=== PATIENT | female | born 1970 | race Caucasian/White ===

== ENCOUNTER 2016-10-15 04:22 | Observation (INO) | payer BC ==
[~2016-10-15] VITALS: Ht 162.6 cm; Wt 68.0 kg
[2016-10-15] VITALS (11 sets, daily range): BP systolic 91–117; BP diastolic 50–68; PULSE 55–72; RESP 16–20; TEMP 97.7–98.7; O2SAT 95–100
[~2016-10-15 04:22] MED LIST: CYCL-36 PO; NAPR500 PO
[2016-10-15] MEDS ORDERED: SODIUM CHLOR 0.9% 1000 ML INJ 1,000 ML IV SCH (04:49)
--- NOTE | 2016-10-15 04:58 | PD ---
HPI Chief Complaint: Abdominal Pain Time Seen by Provider: 04:35 Travel History International Travel<30 days: No Contact w/Intl Traveler<30days: No Traveled to known affect area: No History of Present Illness HPI The patient is a 46-year-old female who presents to the emergency department for abdominal pain. The patient notes a 2 week history of intermittent right upper quadrant abdominal pain that radiates to the right shoulder. The patient states the pain is worse after eating occasionally, was exacerbated by eating fried chicken, and was exacerbated by eating garlic bread earlier tonight. She denies any nausea, vomiting, or diarrhea. The patient does have a family history of gallbladder-related problems, however, denies any personal history of gallstones or biliary colic. The patient denies any associated fever, chills, or sweats. The patient's pain is moderate, radiates to the right shoulder, exacerbated after eating, and minimally self alleviating. The patient's primary physician is Dr. Ortiz. REPLACED BY [facility] Past Medical History Diminished Hearing: No Musculoskeletal: Yes (PREVIOUS HISTORY OF STIFF NECK) Migraines: Yes Tetanus Vaccination: Unknown Influenza Vaccination: No ?: Not LMP: NOW Tubal Ligation: Yes Past Surgical History Narrative Surgical Tubal ligation Social History Alcohol Use: No Tobacco Use: Yes (05/19 PPD) Substance Use: No Allergies-Medications (Allergen,Severity, Reaction): Coded Allergies: Dilaudid (Verified Allergy, Intermediate, Nausea/Vomiting,SWEATING, ) Reported Meds & Prescriptions Reported Meds & Active Scripts Active No Active Prescriptions or Reported Medications Review of Systems Except as stated in HPI: all other systems reviewed are Neg General / Constitutional: No: Fever Cardiovascular: No: Chest Pain or Discomfort Respiratory: No: Shortness of Breath Gastrointestinal: Positive: Abdominal Pain, No: Nausea, Vomiting Genitourinary: No: Dysuria Musculoskeletal: No: Weakness Skin: No Rash Physical Exam Narrative GENERAL: Awake, alert, very pleasant 46-year-old female who appears her stated age and is in no acute respiratory distress. SKIN: Focused skin assessment warm/dry. HEAD: Atraumatic. Normocephalic. EYES: Pupils equal and round. No scleral icterus. No injection or drainage. ENT: No nasal bleeding or discharge. Mucous membranes pink and moist. NECK: Trachea midline. No JVD. CARDIOVASCULAR: Regular rate and rhythm. No murmur appreciated. RESPIRATORY: No accessory muscle use. Clear to auscultation. Breath sounds equal bilaterally. GASTROINTESTINAL: Abdomen soft, tender to palpation right upper quadrant. Positive Adam's. Mild guarding. MUSCULOSKELETAL: No obvious deformities. No clubbing. No cyanosis. No edema. NEUROLOGICAL: Awake and alert. No obvious cranial nerve deficits. Motor grossly within normal limits. Normal speech. PSYCHIATRIC: Appropriate mood and affect; insight and judgment normal. Data Data Last Documented VS Vital Signs Date Time Temp Pulse Resp B/P Pulse Ox O2 Delivery O2 Flow Rate FiO2 10/15/16 06:14 72 18 117/60 98 Room Air 10/15/16 04:25 97.7 Orders Complete Blood Count With Diff (10/15/16 04:49) Comprehensive Metabolic Panel (10/15/16 04:49) Lipase (10/15/16 04:49) Urinalysis - C+S If Indicated (10/15/16 04:49) Ct Abd/Pel W Iv Contrast(Rout) (10/15/16 04:49) Iv Access Insert/Monitor (10/15/16 04:49) Ecg Monitoring (10/15/16 04:49) Oximetry (10/15/16 04:49) Morphine Inj (Morphine Inj) (10/15/16 05:00) Ondansetron Inj (Zofran Inj) (10/15/16 05:00) Sodium Chlor 0.9% 1000 Ml Inj (Ns 1000 M (10/15/16 04:49) Sodium Chloride 0.9% Flush (Ns Flush) (10/15/16 05:00) Ketorolac Inj (Toradol Inj) (10/15/16 05:00) Ed Urine Pregnancytest Poc (10/15/16 04:49) Iohexol 350 Inj (Omnipaque 350 Inj) (10/15/16 05:56) Ampicillin-Sulbactam Inj (Unasyn Inj) (10/15/16 06:15) Ns + Kcl 20 Meq Inj (Ns + Kcl 20 Meq Inj (10/15/16 06:15) Morphine Inj (Morphine Inj) (10/15/16 06:30) Sodium Chlorid 0.9% 500 Ml Inj (Ns 500 M (10/15/16 06:30) Admit Order (Ed Use Only) (10/15/16 06:22) Labs Laboratory Tests Test 10/15/16 10/15/16 04:57 05:04 White Blood Count 10.1 TH/MM3 Red Blood Count 4.41 MIL/MM3 Hemoglobin 12.8 GM/DL Hematocrit 38.6 % Mean Corpuscular Volume 87.4 FL Mean Corpuscular Hemoglobin 29.1 PG Mean Corpuscular Hemoglobin 33.3 % Concent Red Cell Distribution Width 14.1 % Platelet Count 392 TH/MM3 Mean Platelet Volume 7.4 FL Neutrophils (%) (Auto) 56.3 % Lymphocytes (%) (Auto) 32.0 % Monocytes (%) (Auto) 7.6 % Eosinophils (%) (Auto) 3.5 % Basophils (%) (Auto) 0.6 % Neutrophils # (Auto) 5.7 TH/MM3 Lymphocytes # (Auto) 3.2 TH/MM3 Monocytes # (Auto) 0.8 TH/MM3 Eosinophils # (Auto) 0.4 TH/MM3 Basophils # (Auto) 0.1 TH/MM3 CBC Comment DIFF FINAL Differential Comment Sodium Level 141 MEQ/L Potassium Level 3.9 MEQ/L Chloride Level 105 MEQ/L Carbon Dioxide Level 28.1 MEQ/L Anion Gap 8 MEQ/L Blood Urea Nitrogen 14 MG/DL Creatinine 0.88 MG/DL Estimat Glomerular Filtration 69 ML/MIN Rate Random Glucose 92 MG/DL Calcium Level 8.9 MG/DL Total Bilirubin LESS THAN 0.1 MG/DL Aspartate Amino Transf 17 U/L (AST/SGOT) Alanine Aminotransferase 30 U/L (ALT/SGPT) Alkaline Phosphatase 112 U/L Total Protein 7.2 GM/DL Albumin 3.6 GM/DL Lipase 301 U/L Urine Color YELLOW Urine Turbidity CLEAR Urine pH 6.0 Urine Specific [place] 1.022 Urine Protein TRACE mg/dL Urine Glucose (UA) NEG mg/dL Urine Ketones NEG mg/dL Urine Occult Blood LARGE Urine Nitrite NEG Urine Bilirubin NEG Urine Urobilinogen 2.0 MG/DL Urine Leukocyte Esterase NEG Urine RBC 2 /hpf Urine WBC 1 /hpf Urine Squamous Epithelial 1 /hpf Cells Urine Bacteria RARE /hpf Urine Mucus FEW /lpf Microscopic Urinalysis Comment CULT NOT INDICATED MDM Medical Decision Making Medical Screen Exam Complete: Yes Emergency Medical Condition: Yes Medical Record Reviewed: Yes Interpretation(s) Laboratory Tests Test 10/15/16 10/15/16 04:57 05:04 White Blood Count 10.1 TH/MM3 Red Blood Count 4.41 MIL/MM3 Hemoglobin 12.8 GM/DL Hematocrit 38.6 % Mean Corpuscular Volume 87.4 FL Mean Corpuscular Hemoglobin 29.1 PG Mean Corpuscular Hemoglobin 33.3 % Concent Red Cell Distribution Width 14.1 % Platelet Count 392 TH/MM3 Mean Platelet Volume 7.4 FL Neutrophils (%) (Auto) 56.3 % Lymphocytes (%) (Auto) 32.0 % Monocytes (%) (Auto) 7.6 % Eosinophils (%) (Auto) 3.5 % Basophils (%) (Auto) 0.6 % Neutrophils # (Auto) 5.7 TH/MM3 Lymphocytes # (Auto) 3.2 TH/MM3 Monocytes # (Auto) 0.8 TH/MM3 Eosinophils # (Auto) 0.4 TH/MM3 Basophils # (Auto) 0.1 TH/MM3 CBC Comment DIFF FINAL Differential Comment Sodium Level 141 MEQ/L Potassium Level 3.9 MEQ/L Chloride Level 105 MEQ/L Carbon Dioxide Level 28.1 MEQ/L Anion Gap 8 MEQ/L Blood Urea Nitrogen 14 MG/DL Creatinine 0.88 MG/DL Estimat Glomerular Filtration 69 ML/MIN Rate Random Glucose 92 MG/DL Calcium Level 8.9 MG/DL Total Bilirubin LESS THAN 0.1 MG/DL Aspartate Amino Transf 17 U/L (AST/SGOT) Alanine Aminotransferase 30 U/L (ALT/SGPT) Alkaline Phosphatase 112 U/L Total Protein 7.2 GM/DL Albumin 3.6 GM/DL Lipase 301 U/L Urine Color YELLOW Urine Turbidity CLEAR Urine pH 6.0 Urine Specific [place] 1.022 Urine Protein TRACE mg/dL Urine Glucose (UA) NEG mg/dL Urine Ketones NEG mg/dL Urine Occult Blood LARGE Urine Nitrite NEG Urine Bilirubin NEG Urine Urobilinogen 2.0 MG/DL Urine Leukocyte Esterase NEG Urine RBC 2 /hpf Urine WBC 1 /hpf Urine Squamous Epithelial 1 /hpf Cells Urine Bacteria RARE /hpf Urine Mucus FEW /lpf Microscopic Urinalysis Comment CULT NOT INDICATED CT of the abdomen and pelvis reveals an appearance consistent with cholecystitis. The gallbladder is abnormal in appearance, mildly distended with diffuse wall thickening, a stone is present in the fundus. Differential Diagnosis Differential diagnosis includes cholecystitis, biliary colic, symptomatically lithiasis, choledocholithiasis, pancreatitis, gastritis, peptic ulcer disease. Narrative Course IV was established, labs are drawn and sent, and the patient was placed on cardiac telemetry monitoring and continuous pulse oximetry monitoring. Patient was administered morphine, Zofran, Toradol, and IV fluids. Bedside UA test was obtained, was negative, CT of the abdomen and pelvis with IV contrast was ordered to evaluate for acute cholecystitis. White count is normal. LFTs and lipase are unremarkable. CT of the abdomen and pelvis reveals an appearance consistent with acute cholecystitis. The patient was administered Unasyn 3 g intravenously, Nothing by mouth, placed on maintenance fluids. A call was placed to the general surgeon on-call, Dr. Presley, at 6:08 AM. Physician Communication Physician Communication A call was placed the on-call general surgeon, Dr. Presley, at 6:08 AM. I discussed the patient with Dr. Presley at 6:20 AM who agrees with 23 hour observation. Diagnosis Primary Impression: Cholecystitis Admitting Information Admitting Physician Requests: Observation Scripts No Active Prescriptions or Reported Meds Condition: Stable Nicolas Null MD October 15, 2016 04:58
[2016-10-15] MEDS ORDERED: SODIUM CHLORIDE 0.9% FLUSH 10 ML FLUSH IV FLUSH PRN (05:00)
[2016-10-15] MEDS ORDERED: KETOROLAC TROMETHAMINE 30 MG/ML (IVP) VIAL IVP ONE (05:00)
[2016-10-15] MEDS ORDERED: ONDANSETRON HCL 4 MG/2 ML VIAL IVP ONE (05:00)
[2016-10-15] MEDS ORDERED: MORPHINE SULFATE 4 MG/ML INJ IV PUSH ONE ×2 (05:00→06:30)
[2016-10-15 05:05] LABS: AUTOMATED NEUTROPHIL # 5.7 TH/MM3 (1.8-7.7); BASOPHIL # 0.1 TH/MM3 (0-0.2); BASOPHIL % 0.6 % (0.0-2.0); EOSINOPHIL # 0.4 TH/MM3 (0-0.4); EOSINOPHIL % 3.5 % (0.0-4.0); HEMATOCRIT 38.6 % (35.0-46.0); HEMO FLAGS DIFF FINAL; LYMPHOCYTE # 3.2 TH/MM3 (1.0-4.8); MEAN CELL VOLUME 87.4 FL (80.0-100.0); MEAN CORPUSCULAR HEMOGLOBIN 29.1 PG (27.0-34.0); MEAN CORPUSCULAR HGB CONC 33.3 % (32.0-36.0); MONO % 7.6 % (0.0-8.0); NEUT % 56.3 % (16.0-70.0); PLATELET COUNT 392 TH/MM3 (150-450); RED BLOOD COUNT 4.41 MIL/MM3 (4.00-5.30); RED CELL DISTRIBUTION WIDTH 14.1 % (11.6-17.2); WHITE BLOOD COUNT 10.1 TH/MM3 (4.0-11.0)
[2016-10-15 05:26] LABS: ALT (GPT) 30 U/L (10-53); ANION GAP 8 MEQ/L (5-15); AST (GOT) 17 U/L (15-37); BICARBONATE 28.1 MEQ/L (21.0-32.0); BLOOD UREA NITROGEN 14 MG/DL (7-18); CHLORIDE 105 MEQ/L (98-107); GLOMERULAR FILTRATION RATE 69 ML/MIN (>89); POTASSIUM 3.9 MEQ/L (3.5-5.1); SODIUM (NA) 141 MEQ/L (136-145)
[2016-10-15 05:28] LABS: ALKALINE PHOSPHATASE 112 U/L (45-117); TOTAL BILIRUBIN ADULT LESS THAN 0.1 MG/DL (0.2-1.0)
[2016-10-15 05:29] LABS: BACTERIA, URINE RARE /hpf; BLOOD, URINE LARGE (NEG); COMMENT (UR) CULT NOT INDICATED; CULTURE IF INDICATED CULT NOT INDICATED; GLUCOSE,URINE NEG (NEG); KETONE, URINE NEG (NEG); MUCUS URINE FEW /lpf (OCC); NITRITE,URINE NEG (NEG); SQUAMOUS EPITHELIAL CELL URINE 1 /hpf (0-5); URINE COLOR YELLOW (YELLW/STRAW)
[2016-10-15] MEDS ORDERED: IOHEXOL 350 MG/ML 10 ML VIAL (for RAD DIAG) IV ONE (05:56)
[2016-10-15] MEDS ORDERED: AMPICILLIN-SULBACTAM INJ 3 GM in SODIUM CHLORIDE 0.9% INJ 100 ML IV ONE (06:15)
[2016-10-15] MEDS: NS + KCL 20 MEQ INJ 1,000 ML IV SCH ×3 (06:15→21:15)
[2016-10-15] MEDS ORDERED: SODIUM CHLORID 0.9% 500 ML INJ 500 ML IV ONE (06:30)
[2016-10-15] MEDS ORDERED: MORPHINE SULFATE 4 MG/ML INJ IV PUSH PRN (06:30)
[2016-10-15] MEDS ORDERED: ACETAMINOPHEN 650 MG SUPP RECTAL PRN (06:30)
[2016-10-15] MEDS ORDERED: ONDANSETRON HCL 4 MG/2 ML VIAL IV PRN (06:30)
[2016-10-15] MEDS ORDERED: SODIUM CHLORIDE 0.9% FLUSH 10 ML FLUSH IVF PRN (06:30)
[2016-10-15] MEDS: AMPICILLIN-SULBACTAM INJ 1,500 MG in SODIUM CHLORIDE 0.9% INJ 100 ML IV SCH ×3 (07:00→17:57)
[2016-10-15 07:05] LABS: APTT (PATIENT) 27.2 SEC (24.3-30.1); INTERNATIONAL NORMALIZED RATIO 0.9 RATIO; PROTHROMBIN TIME - PATIENT 9.4 SEC (9.8-11.6)
[2016-10-15] MEDS: SODIUM CHLORIDE 0.9% FLUSH 10 ML FLUSH IV FLUSH SCH ×2 (08:09→20:45)
--- NOTE | 2016-10-15 08:27 | RADRPT ---
EXAM DATE/TIME: 10/15/2016 05:51 [place] COMPARISON: No previous studies available for comparison. INDICATIONS : Right upper qaudrant pain. IV CONTRAST: 95 cc Omnipaque 350 (iohexol) IV ORAL CONTRAST: No oral contrast ingested. RADIATION DOSE: 6.64 CTDIvol (mGy) MEDICAL HISTORY : None SURGICAL HISTORY : Tubal ligation. ENCOUNTER: Initial ACUITY: 1 day PAIN SCALE: 8/10 LOCATION: Right upper quadrant TECHNIQUE: Volumetric scanning of the abdomen and pelvis was performed. Using automated exposure control and ad justment of the mA and/or kV according to patient size, radiation dose was kept as low as reasonably achievable to obtain optimal diagnostic quality images. FINDINGS: LOWER LUNGS: The visualized lower lungs are clear. LIVER: Homogeneous density without lesion. There is no dilation of the biliary tree. The gallbladder is abn ormal in appearance, mildly distended with diffuse wall thickening. A stone is present in the fundus. . SPLEEN: Small low-density lesion in the lateral aspect of the spleen may be cyst or hemangioma. PANCREAS: Within normal limits. KIDNEYS: Normal in size and shape. There is no mass, stone or hydronephrosis. ADRENAL GLANDS: Within normal limits. VASCULAR: There is no aortic aneurysm. BOWEL/MESENTERY: The stomach, small bowel, and colon demonstrate no acute abnormality. There is no free intraperitone al air or fluid. ABDOMINAL WALL: Within normal limits. RETROPERITONEUM: There is no lymphadenopathy. BLADDER: No wall thickening or mass. REPRODUCTIVE: Within normal limits. INGUINAL: There is no lymphadenopathy or hernia. MUSCULOSKELETAL: Within normal limits for patient age. CONCLUSION: CT appearance consistent with cholecystitis. Zafar Castellon MD on October 15, 2016 at 5:59 Board Certified Radiologist. This report was verified electronically.
--- NOTE | 2016-10-15 08:51 | EKG ---
Date Performed: 10/15/2016 Time Performed: 06:46:40 PTAGE: 46 years EKG: Sinus rhythm POSSIBLE RIGHT VENTRICULAR CONDUCTION DELAY BORDERLINE ECG NO PREVIOUS TRACING DOCTOR: Garland Ferrell Interpretating Date/Time 10/15/2016 08:49:56
--- NOTE | 2016-10-15 11:59 | HHI.HP ---
HPI Service General Surgery Primary Care Physician Haven Lemus MD Admission Diagnosis cholecystitis Chief Complaint: Abdominal pain History of Present Illness Mrs. Franklin is a 46-year-old female with a two-week history of abdominal pain. Last night she was awakened from sleep with severe epigastric abdominal pain radiating to the right upper quadrant right flank and right shoulder. It was associated with nausea. She relates that she had a similar episode although not quite as severe about 2 weeks ago. During this 2 weeks she has had persistent pain which more mild. She's been taking Zantac twice a day. She has been eating a more bland diet. Past surgical history includes tubal ligation. She was evaluated in the emergency department and noted to have a positive Adam sign and CT abdomen and pelvis consistent with cholecystitis. Review of Systems Constitutional: DENIES: Fever, Chills Eyes: DENIES: Eye inflammation, Eye pain Respiratory: DENIES: Cough, Shortness of breath Cardiovascular: DENIES: Chest pain, Palpitations Gastrointestinal: COMPLAINS OF: Abdominal pain, Nausea Integumentary: DENIES: Pruritus, Rash Neurologic: DENIES: Localized weakness, Seizures Past Family Social History Past Medical History None Past Surgical History Tubal ligationshe relates bradycardia after anesthesia. She will discuss this with anesthesia prior to surgery. Reported Medications Reported Meds & Active Scripts Active No Active Prescriptions or Reported Medications Allergies: Coded Allergies: Dilaudid (Verified Allergy, Intermediate, Nausea/Vomiting,SWEATING, ) Active Ordered Medications Current Medications Medications (Trade) Dose Ordered Sig/[place] Route Start Time Stop Time Status Last Admin Sodium Chloride 2 ml 2 ml UNSCH PRN IV FLUSH 10/15/16 05:00 10/15/16 05:12 (NS + KCl 20 Meq Inj) 1,000 ml @ 125 mls/hr Q8H IV 10/15/16 06:15 10/15/16 06:15 (Zofran Inj) 4 mg Q6H PRN IV 10/15/16 06:30 (Tylenol) 650 mg Q4H PRN PO 10/15/16 06:30 (Tylenol Supp) 650 mg Q4H PRN RECTAL 10/15/16 06:30 (NS Flush) 2 ml BID IV FLUSH 10/15/16 09:00 (NS Flush) 2 ml UNSCH PRN IVF 10/15/16 06:30 Morphine Sulfate 4 mg 4 mg Q3H PRN IV PUSH 10/15/16 06:30 (Unasyn Inj/NS Inj) 100 ml @ 200 mls/hr Q6H IV 10/15/16 07:00 Family History Noncontributory Social History No alcohol or drug use. She smokes half pack of cigarettes daily. Physical Exam Vital Signs Vital Signs Date Time Temp Pulse Resp B/P Pulse Ox O2 Delivery O2 Flow Rate FiO2 10/15/16 11:26 98.0 60 20 93/50 97 10/15/16 08:41 97.8 55 20 93/61 98 10/15/16 07:35 95 21 10/15/16 06:14 72 18 117/60 98 Room Air 10/15/16 04:52 18 100 Room Air 10/15/16 04:29 16 10/15/16 04:25 97.7 63 16 116/68 98 Room Air Physical Exam GENERAL: Awake and alert. No acute distress. Cooperative. HEAD: Normocephalic. Atraumatic. EYES: Pupils equal round and reactive to light bilaterally. No scleral icterus. CHEST: Lungs clear to auscultation bilaterally with no wheezing or rhonchi. No respiratory distress. CARDIOVASCULAR: Regular rate and rhythm. ABDOMEN: Nondistended. Soft. Positive Adam sign and severe tenderness in the right upper quadrant. EXTREMITIES: No cyanosis or edema. SKIN: Warm, dry, nonjaundiced. Laboratory Laboratory Tests Test 10/15/16 10/15/16 10/15/16 04:57 05:04 06:40 White Blood Count 10.1 Red Blood Count 4.41 Hemoglobin 12.8 Hematocrit 38.6 Mean Corpuscular Volume 87.4 Mean Corpuscular Hemoglobin 29.1 Mean Corpuscular Hemoglobin 33.3 Concent Red Cell Distribution Width 14.1 Platelet Count 392 Mean Platelet Volume 7.4 Neutrophils (%) (Auto) 56.3 Lymphocytes (%) (Auto) 32.0 Monocytes (%) (Auto) 7.6 Eosinophils (%) (Auto) 3.5 Basophils (%) (Auto) 0.6 Neutrophils # (Auto) 5.7 Lymphocytes # (Auto) 3.2 Monocytes # (Auto) 0.8 Eosinophils # (Auto) 0.4 Basophils # (Auto) 0.1 CBC Comment DIFF FINAL Differential Comment Sodium Level 141 Potassium Level 3.9 Chloride Level 105 Carbon Dioxide Level 28.1 Anion Gap 8 Blood Urea Nitrogen 14 Creatinine 0.88 Estimat Glomerular Filtration 69 Rate Random Glucose 92 Calcium Level 8.9 Total Bilirubin LESS THAN 0.1 Aspartate Amino Transf 17 (AST/SGOT) Alanine Aminotransferase 30 (ALT/SGPT) Alkaline Phosphatase 112 Total Protein 7.2 Albumin 3.6 Lipase 301 Urine Color YELLOW Urine Turbidity CLEAR Urine pH 6.0 Urine Specific [place] 1.022 Urine Protein TRACE Urine Glucose (UA) NEG Urine Ketones NEG Urine Occult Blood LARGE Urine Nitrite NEG Urine Bilirubin NEG Urine Urobilinogen 2.0 Urine Leukocyte Esterase NEG Urine RBC 2 Urine WBC 1 Urine Squamous Epithelial 1 Cells Urine Bacteria RARE Urine Mucus FEW Microscopic Urinalysis Comment CULT NOT INDICATED Prothrombin Time 9.4 Prothromb Time International 0.9 Ratio Activated Partial 27.2 Thromboplast Time Result Diagram: 10/15/16 0457 10/15/16 0457 Imaging Last Impressions Abdomen/Pelvis CT 10/15/16 0449 Signed Impressions: Service Date/Time: Saturday, October 15, 2016 05:51 - CONCLUSION: CT appearance consistent with cholecystitis. Zafar Castellon MD Assessment and Plan Assessment and Plan 46-year-old female with two-week history of right upper quadrant pain and evaluation consistent with acute cholecystitis. She has been placed on Unasyn. I recommend to proceed to the operating room for laparoscopic possible open cholecystectomy. I discussed details and risks with the patient and she desires to proceed. She is on the schedule for 9 AM tomorrow. FernandezTawanda MD October 15, 2016 11:59
[2016-10-16] MEDS: AMPICILLIN-SULBACTAM INJ 1,500 MG in SODIUM CHLORIDE 0.9% INJ 100 ML IV SCH ×2 (01:43→06:20)
[2016-10-16] MEDS: ACETAMINOPHEN 325 MG TAB PO PRN ×2 (01:46→06:19)
[2016-10-16 03:45] VITALS: BP 96/59; PULSE 63; RESP 18; TEMP 98.8; O2SAT 95
[2016-10-16] MEDS: NS + KCL 20 MEQ INJ 1,000 ML IV SCH (06:20)
[2016-10-16] MEDS: SODIUM CHLORIDE 0.9% FLUSH 10 ML FLUSH IV FLUSH SCH (07:49)
[2016-10-16] MEDS ORDERED: BUPIVACAINE/EPINEPHRINE 0.25% PF 10 ML VIAL ONE (08:27)
[2016-10-16] MEDS ORDERED: ACETAMINOPHEN 1000 MG/100 ML VIAL IV ONE (08:36)
[2016-10-16] MEDS ORDERED: DEXAMETHASONE SOD PHOS 4 MG/ML VIAL ONE (08:36)
[2016-10-16] MEDS ORDERED: MIDAZOLAM HCL 2 MG/2 ML VIAL ONE ×2 (08:36→10:33)
[2016-10-16] MEDS ORDERED: fentaNYL CITRATE 250 MCG/5 ML AMP ONE ×2 (08:36→10:34)
[2016-10-16] MEDS ORDERED: FAMOTIDINE 20 MG/2 ML VIAL ONE (08:43)
[2016-10-16] MEDS ORDERED: BUPIVACAINE/EPINEPHRINE 0.25% PF 30 ML VIAL INFIL ONE (09:22)
--- NOTE | 2016-10-16 10:07 | PD.OP ---
cc: Tawanda Presley MD Operative Report Date of Surgery: Oct 16, 2016 Preoperative Diagnosis: (1) Cholecystitis Postoperative Diagnosis: (1) Cholecystitis Procedure: Laparoscopic cholecystectomy Anesthesia: GETA Surgeon: Tawanda Presley Veterinarian Assistant(s): Wilmer Santizo Operation and Findings: Complications: None apparent EBL: 10 cc Operative findings: The gallbladder was distended with moderate inflammation. There was significant gallbladder wall edema. Procedure in detail: The patient was taken to the operating room and placed in the supine position. General endotracheal anesthesia was induced. The abdomen was prepped and draped in usual sterile fashion and a surgical timeout was performed to verify correct patient procedure and site. Appropriate perioperative antibiotics were administered. Local anesthetic was injected in the skin and subcutaneous tissue superior to the umbilicus and a 5 mm incision performed. The abdomen was entered using the Optiview 5 mm trocar with direct laparoscopic visualization. The abdomen was then insufflated to 15 mmHg with CO2 gas which the patient tolerated well. Next a 12 mm port was placed in the epigastrium and two 5 mm ports in the right upper quadrant and right lateral abdomen. The patient was placed in reverse Trendelenburg position and turned slightly to the left. Attention was turned to the right upper quadrant and the dome of the gallbladder was grasped and retracted cephalad. The gallbladder was distended and enlarged with acute inflammation. The infundibulum was retracted laterally to expose Calot's triangle. Blunt dissection and judicious use of electrocautery was used to expose the cystic duct and the cystic artery directly entering the gallbladder. Two clips were placed proximally on each of these structures and one distally and they were transected. The gallbladder was then removed from the liver bed using electrocautery. There was significant edema in the wall of the gallbladder. Hemostasis was achieved. The gallbladder was then removed from the abdomen using an Endo Catch bag. The clips were in place on the cystic duct and cystic artery stumps with no bleeding or bile leakage. At this point, the abdomen was allowed to desufflate and trochars were removed. The fascia at the 12 mm port site was closed with 0 Vicryl suture. Skin was closed with subcuticular 4-0 Monocryl as well as Dermabond. The patient tolerated the procedure well and was extubated and taken to PACU in stable condition. All sponge and instrument counts were correct. Tawanda Presley MD Oct 16, 2016 10:07
[2016-10-16] MEDS ORDERED: HYDR-3516 PO (10:08)
[2016-10-16] MEDS ORDERED: ACETAMINOPHEN/HYDROcodone 325 MG/5 MG TAB PO PRN ×2 (10:15)
[2016-10-16] MEDS ORDERED: MORPHINE SULFATE 4 MG/ML INJ ONE (10:34)
[2016-10-16] MEDS ORDERED: DO NOT ADM ANY ANTICOAGULANT DRUGS PRN (11:00)
[2016-10-16] MEDS ORDERED: *ONDANSETRON 4 MG VIAL PERIprocedural Use ONLY ONE (11:28)
[2016-10-16] MEDS ORDERED: KETOROLAC TROMETHAMINE 60 MG/2 ML (IM) VIAL IM ONE (12:00)
[2016-10-16] MEDS ORDERED: PROPOFOL 200 MG/20 ML AMP IV ONE (12:00)
[2016-10-16] MEDS ORDERED: ONDANSETRON HCL 4 MG/2 ML VIAL IV PUSH ONE (12:00)
[2016-10-16] MEDS ORDERED: NEOSTIGMINE 3 MG/3 ML SYR IV ONE (12:00)
[2016-10-16 13:25] VITALS: BP 93/63; PULSE 53; RESP 16; TEMP 96.7; O2SAT 96
== END 2016-10-16 14:38 | disposition home or self-care (01) ==
LOC: NEPC 04:22 → NEDA 06:25 → NEPHCDU 08:13 → N07B 10-16 08:52
PROVIDERS: ADMIT Surgery; ATTEND Surgery
DX: K80.10 Calculus of gallbladder with chronic cholecystitis without obstruction (principal); F17.210 Nicotine dependence, cigarettes, uncomplicated; Z88.5 Allergy status to narcotic agent
CPT/HCPCS: 47562; 74177; 80053; 81001; 83690; 84703; 85025; 85610; 85730; 88304; 93005; 96361; 96374; 96375; 96376; 99285; G0378; J0131; J0295; J1100; J1885; J2250; J2270; J2405; J2710; J3010; J3480; J7030; J7040; Q9967